=== PATIENT | female | born 1930 | race Caucasian/White ===

== ENCOUNTER 2020-07-02 13:27 | Emergency (ER) | payer MEDICARE, BC ==
[~2020-07-02] VITALS: Ht 165.1 cm; Wt 66.0 kg
--- NOTE | 2020-07-02 13:45 | NUR ---
awaiting for ed provider.
[2020-07-02] MEDS ORDERED: LIDOcaine 5% patch TP STA (15:17)
[2020-07-02] MEDS ORDERED: acetaminophen 325mg tablet PO ONE (15:20)
[2020-07-02] MEDS ORDERED: HYDR-4383 PO (15:48)
[2020-07-02 16:59] VITALS: BP 160/89
--- NOTE | 2020-07-02 18:05 | NUR ---
pt have not got lso brace because we do not have it in the supply .charge nurse aware also dr okeefe aware as per charge nurse jacqueline stated to get ama form signed.spoke to dr okeefe as per she does not have to sign ama form . paula estevez called [facility] to get brace .dr okeefe wrote the prx for lso brace ,pt instructed to get the brace and f/u with pcp or return to er for placement of brace ,pt and pt friend who is here to picking machine operator helper pt verbalized understanding .denies any other concern .
== END 2020-07-02 18:13 | disposition home or self-care (01) ==
LOC: ER 13:28
DX: S32.039A Unspecified fracture of third lumbar vertebra, initial encounter for closed fracture (principal); M54.5 Low back pain; Z88.0 Allergy status to penicillin; Z88.2 Allergy status to sulfonamides; Z79.899 Other long term (current) drug therapy; W19.XXXA Unspecified fall, initial encounter; Y93.89 Activity, other specified; Y92.099 Unspecified place in other non-institutional residence as the place of occurrence of the external cause; Y99.8 Other external cause status
CPT/HCPCS: 72131; 72192; 99285